=== PATIENT | male | born 1950 | race Caucasian/White ===

== ENCOUNTER 2017-05-07 16:45 | Inpatient (IN) | payer OTHER ==
[~2017-05-07] VITALS: Ht 167.6 cm; Wt 55.7 kg
[~2017-05-07 16:45] MED LIST: ASPIR 8181 M1 PO; BENADRYL25 MG PO; DIGOXIN125 MCG PO; DOK PLUS TABLE1 EACH PO; FOLIC ACID0.8 M1 PO; LISINOPRIL10 MG PO; METOPROLOL TART25 MG PO; OXYCODONE HCL5 MG PO; RANITIDINE HCL150 MG PO; SIMVASTATIN20 MG PO; TYLENOL ARTHRI650 MG PO; XARELTO10 MG PO; XARELTO20 MG PO
[2017-05-07 21:30] LABS: HEMATOCRIT 35.3 % (38.0-50.0); MCH 30.7 PG (29.0-34.0); MCHC 33.7 G/DL (30.0-36.0); MCV 91.2 FL (86-99); MEAN PLAT.VOLUME 9.1 uM^3 (9.0-12.4); PLATELET COUNT 248 K/uL (156-360); RBC DIS.WIDTH-CV 12.7 % (11.8-14.6); RBC DIS.WIDTH-SD 42.3 % (39-53); RED BLOOD COUNT 3.87 M/uL (4.00-5.50); WHITE BLOOD COUNT 16.3 K/uL (4.1-10.2)
[2017-05-07 21:35] LABS: INTER. NORMALIZED RATIO 1.2; PROTHROMBIN TIME 12.8 SEC (10.2-12.9)
[2017-05-07 21:38] LABS: PTT 30.9 SEC (25-37)
[2017-05-07 21:40] LABS: CHLORIDE 96 mEq/L (99-109); SODIUM 129 mEq/L (136-147)
[2017-05-07 21:42] LABS: GLUCOSE 120 mg/dL (70-99)
[2017-05-07 21:43] LABS: ANION GAP 10 MEQ/L (2-14)
[2017-05-07 21:46] LABS: GFR ESTIMATE (CALCULATED) > 59 mL/min/
[2017-05-07 21:47] LABS: UREA NITROGEN (BUN) 9 mg/dL (9-23)
[2017-05-07 23:13] VITALS: BP 114/79
[2017-05-08 00:47] LABS: TROP-I INTERPRETATION NEGATIVE; TROPONIN-I 0.02 ng/mL (0.0-0.30)
[2017-05-08 02:01] LABS: MAGNESIUM 1.4 mg/dL (1.3-2.7)
[2017-05-08 04:05] VITALS: BP 98/68
[2017-05-08 05:12] LABS: ADD MIUA? YES; BILIRUBIN NEGATIVE; BLOOD MODERATE; COLOR YELLOW ((YELLOW)); GLUCOSE (STRIP) NEGATIVE; KETONES 20; LEUKOCYTES NEGATIVE; NITRITE NEGATIVE; PROTEIN (STRIP) NEGATIVE; SPECIFIC GRAVITY 1.015 (1.000-1.030); UROBILINOGEN 0.2 MG/DL (0.2-1.0)
[2017-05-08 05:23] LABS: BACTERIA NONE SEEN /HPF; EPITHELIAL CELLS NONE SEEN /HPF; MUCUS TRACE /LPF; UCUL ADDED? NO; WHITE BLOOD CELLS 0-5 /HPF (0-5)
[2017-05-08 08:15] VITALS: BP 105/65
[2017-05-08 14:19] VITALS: BP 136/86
[2017-05-08 20:51] VITALS: BP 110/74
[2017-05-08 23:32] VITALS: BP 105/64
[2017-05-09] VITALS (10 sets, daily range): BP systolic 97–116; BP diastolic 54–66
[2017-05-09 06:17] LABS: HEMATOCRIT 23.4 % (38.0-50.0); MCV 94.4 FL (86-99)
[2017-05-09 06:36] LABS: ANION GAP 9 MEQ/L (2-14); CHLORIDE 98 MEQ/L (99-109); GFR ESTIMATE (CALCULATED) > 59 mL/min/; POTASSIUM 4.7 MEQ/L (3.7-5.4); SAMPLE HEMOLYSIS CHECK 0; SAMPLE ICTERIC CHECK 0; SAMPLE LIPEMIA CHECK 0; SODIUM 130 MEQ/L (136-147); UREA NITROGEN (BUN) 16 mg/dL (9-23)
[2017-05-09 06:45] LABS: GLUCOSE 193 mg/dL (70-99)
[2017-05-10] VITALS (11 sets, daily range): BP systolic 82–115; BP diastolic 50–66
[2017-05-10 07:12] LABS: HEMATOCRIT 21.1 % (38.0-50.0); MCH 30.6 PG (29.0-34.0); MCHC 33.2 G/DL (30.0-36.0); MCV 92.1 FL (86-99); RBC DIS.WIDTH-CV 14.6 % (11.8-14.6); RBC DIS.WIDTH-SD 49.6 % (39-53); RED BLOOD COUNT 2.29 M/uL (4.00-5.50); WHITE BLOOD COUNT 10.7 K/uL (4.1-10.2)
[2017-05-10 07:19] LABS: EOSINOPHIL (%) 0 % (0-5); IMMATURE GRANULOCYTE (%) 0.5 % (0.0-0.7); IMMATURE GRANULOCYTE COUNT 0.1 K/uL; MEAN PLAT.VOLUME 10.2 uM^3 (9.0-12.4); MONOCYTE (%) 5.7 % (3-12); MONOCYTE COUNT 0.6 K/uL (0-0.8); NEUTROPHIL (%) 84.4 % (45-76); PLAT.SUFFICIENCY ADEQUATE
[2017-05-10 07:22] LABS: PLATELET COUNT 157 K/uL (156-360)
[2017-05-10 07:47] LABS: ALKALINE PHOSPHATASE 34 IU/L (3-129); ANION GAP 5 MEQ/L (2-14); CHLORIDE 101 MEQ/L (99-109); GFR ESTIMATE (CALCULATED) > 59 mL/min/; POTASSIUM 4.5 MEQ/L (3.7-5.4); SAMPLE HEMOLYSIS CHECK 0; SAMPLE ICTERIC CHECK 0; SAMPLE LIPEMIA CHECK 0; SODIUM 132 MEQ/L (136-147); TOTAL BILIRUBIN 0.6 MG/DL (0.0-1.0); UREA NITROGEN (BUN) 16 mg/dL (9-23)
[2017-05-10 07:48] LABS: GLUCOSE 113 mg/dL (70-99)
[2017-05-11 00:19] VITALS: BP 106/61
[2017-05-11 06:46] LABS: MCH 30.6 PG (29.0-34.0); MCHC 33.2 G/DL (30.0-36.0); MCV 92.1 FL (86-99); MEAN PLAT.VOLUME 9.7 uM^3 (9.0-12.4); PLATELET COUNT 156 K/uL (156-360); RBC DIS.WIDTH-CV 15.1 % (11.8-14.6); RBC DIS.WIDTH-SD 50.7 % (39-53); WHITE BLOOD COUNT 8.5 K/uL (4.1-10.2)
[2017-05-11 07:05] LABS: ANION GAP 7 MEQ/L (2-14); CHLORIDE 107 MEQ/L (99-109); GFR ESTIMATE (CALCULATED) > 59 mL/min/; GLUCOSE 97 mg/dL (70-99); SAMPLE HEMOLYSIS CHECK 0; SAMPLE ICTERIC CHECK 0; SAMPLE LIPEMIA CHECK 0; SODIUM 135 MEQ/L (136-147); UREA NITROGEN (BUN) 11 mg/dL (9-23)
[2017-05-11 07:28] LABS: RED BLOOD COUNT 3.04 M/uL (4.00-5.50)
[2017-05-11 08:06] VITALS: BP 110/71
[2017-05-11 12:25] VITALS: BP 112/68
[2017-05-11 15:29] LABS: HEMATOCRIT 35.1 % (38.0-50.0); MCV 92.1 FL (86-99)
[2017-05-11 15:36] VITALS: BP 101/59
[2017-05-11 19:29] VITALS: BP 111/65
[2017-05-11 23:40] VITALS: BP 132/74
[2017-05-12 03:47] VITALS: BP 138/81
[2017-05-12 06:54] LABS: HEMATOCRIT 27.2 % (38.0-50.0); MCH 31.8 PG (29.0-34.0); MCHC 34.9 G/DL (30.0-36.0); MEAN PLAT.VOLUME 9.2 uM^3 (9.0-12.4); PLATELET COUNT 173 K/uL (156-360); RBC DIS.WIDTH-CV 14.9 % (11.8-14.6); RBC DIS.WIDTH-SD 49.1 % (39-53); RED BLOOD COUNT 2.99 M/uL (4.00-5.50); WHITE BLOOD COUNT 6.3 K/uL (4.1-10.2)
[2017-05-12 07:27] VITALS: BP 144/89
[2017-05-12 16:27] VITALS: BP 106/76
[2017-05-12 19:42] VITALS: BP 100/73
[2017-05-12 23:41] VITALS: BP 120/86
[2017-05-13 06:52] LABS: HEMATOCRIT 31.6 % (38.0-50.0); MCH 32.1 PG (29.0-34.0); MCHC 34.8 G/DL (30.0-36.0); MCV 92.1 FL (86-99); PLATELET COUNT 172 K/uL (156-360); RBC DIS.WIDTH-CV 14.6 % (11.8-14.6); RBC DIS.WIDTH-SD 48.8 % (39-53); RED BLOOD COUNT 3.43 M/uL (4.00-5.50); WHITE BLOOD COUNT 8.9 K/uL (4.1-10.2)
[2017-05-13 07:10] VITALS: BP 128/81
[2017-05-13 07:24] LABS: ANION GAP 9 MEQ/L (2-14); CHLORIDE 102 MEQ/L (99-109); GFR ESTIMATE (CALCULATED) > 59 mL/min/; GLUCOSE 91 mg/dL (70-99); SAMPLE HEMOLYSIS CHECK 0; SAMPLE ICTERIC CHECK 0; SAMPLE LIPEMIA CHECK 0; SODIUM 131 MEQ/L (136-147); UREA NITROGEN (BUN) 9 mg/dL (9-23)
[2017-05-13] MEDS ORDERED: DUONEB 2.5-0.5 M3 ML PEP (09:49)
[2017-05-13] MEDS ORDERED: THERAGRAN1 TABLET PO (09:50)
[2017-05-13] MEDS ORDERED: SENNA PLUS TAB1 EACH PO (09:50)
[2017-05-13] MEDS ORDERED: ELIQUIS2.5 MG PO (09:50)
[2017-05-13 15:53] VITALS: BP 115/72
[2017-05-14 00:17] VITALS: BP 126/80
[2017-05-14 08:10] VITALS: BP 111/75
[2017-05-14 10:31] LABS: ANION GAP 8 MEQ/L (2-14); CHLORIDE 104 MEQ/L (99-109); POTASSIUM 3.9 MEQ/L (3.7-5.4); SAMPLE HEMOLYSIS CHECK 0; SAMPLE ICTERIC CHECK 0; SAMPLE LIPEMIA CHECK 0; SODIUM 134 MEQ/L (136-147)
[2017-05-14 10:36] LABS: GFR ESTIMATE (CALCULATED) > 59 mL/min/; GLUCOSE 92 mg/dL (70-99); UREA NITROGEN (BUN) 9 mg/dL (9-23)
[2017-05-14 12:18] VITALS: BP 110/76
== END 2017-05-14 13:10 | DRG 481 ==
LOC: EME 16:45 → EDOF 22:11 → 3EAST 22:11 → ENRESERV 22:15 → 3EAST 23:10
PROVIDERS: Emergency Medicine; Hospitalist; Orthopaedic Surgery; Physician Assistant
PROC: 0HQ1XZZ Repair Face Skin, External Approach (ICD-10-PCS; principal; 2017-05-07)
PROC: 0QS906Z Reposition Left Femoral Shaft with Intramedullary Internal Fixation Device, Open Approach (ICD-10-PCS; principal; 2017-05-07)
PROC: 30233N1 Transfusion of Nonautologous Red Blood Cells into Peripheral Vein, Percutaneous Approach (ICD-10-PCS; 2017-05-09)
DX: S72.452A Displaced supracondylar fracture without intracondylar extension of lower end of left femur, initial encounter for closed fracture (principal); Z96.652 Presence of left artificial knee joint; M97.9XXA Periprosthetic fracture around unspecified internal prosthetic joint, initial encounter; W01.0XXA Fall on same level from slipping, tripping and stumbling without subsequent striking against object, initial encounter; I10 Essential (primary) hypertension; E78.00 Pure hypercholesterolemia, unspecified; I25.10 Atherosclerotic heart disease of native coronary artery without angina pectoris; S01.81XA Laceration without foreign body of other part of head, initial encounter; E87.1 Hypo-osmolality and hyponatremia; K02.9 Dental caries, unspecified; I48.0 Paroxysmal atrial fibrillation; F10.20 Alcohol dependence, uncomplicated; J32.0 Chronic maxillary sinusitis; Z87.891 Personal history of nicotine dependence; I25.2 Old myocardial infarction; D72.829 Elevated white blood cell count, unspecified; D62 Acute posthemorrhagic anemia
CPT/HCPCS: 70450; 70486; 71010; 73552; 73560; 76000; 80048; 80053; 81003; 82306; 83605; 83735; 83880; 84484; 85014; 85018; 85025; 85027; 85610; 85730; 86850; 86900; 86901; 86920; 93005; 93306; 93880; 94760; 94799; 97530 GP; 99202; 99281; 99285; C1713; J0330; J0690; J1100; J1170; J2250; J2270; J2405; J2710; J3010; J3475; J7030; P9016

== ENCOUNTER 2017-05-14 11:07 | Inpatient (IN) | payer OTHER ==
[~2017-05-14] VITALS: Ht 170.2 cm; Wt 61.0 kg
[~2017-05-14 11:07] MED LIST changes: +DUONEB 2.5-0.5 M3 ML PEP; +ELIQUIS2.5 MG PO; +SENNA PLUS TAB1 EACH PO; +THERAGRAN1 TABLET PO
[2017-05-14 13:30] VITALS: BP 119/77
[2017-05-14 23:48] VITALS: BP 113/87
[2017-05-15 05:27] VITALS: BP 115/72
[2017-05-15 11:03] LABS: HEMATOCRIT 29.8 % (38.0-50.0); MCH 31.6 PG (29.0-34.0); MCHC 34.6 G/DL (30.0-36.0); MCV 91.4 FL (86-99); MEAN PLAT.VOLUME 9.2 uM^3 (9.0-12.4); PLATELET COUNT 255 K/uL (156-360); RBC DIS.WIDTH-CV 14.1 % (11.8-14.6); RBC DIS.WIDTH-SD 47.2 % (39-53); RED BLOOD COUNT 3.26 M/uL (4.00-5.50); WHITE BLOOD COUNT 7.7 K/uL (4.1-10.2)
[2017-05-15 11:40] LABS: ALKALINE PHOSPHATASE 48 IU/L (3-129); ANION GAP 9 MEQ/L (2-14); CHLORIDE 100 MEQ/L (99-109); GFR ESTIMATE (CALCULATED) > 59 mL/min/; GLUCOSE 86 mg/dL (70-99); POTASSIUM 3.9 MEQ/L (3.7-5.4); SAMPLE HEMOLYSIS CHECK 0; SAMPLE ICTERIC CHECK 0; SAMPLE LIPEMIA CHECK 0; SODIUM 134 MEQ/L (136-147); UREA NITROGEN (BUN) 10 mg/dL (9-23)
[2017-05-15 11:42] LABS: TOTAL BILIRUBIN 0.8 MG/DL (0.0-1.0)
[2017-05-15 15:09] VITALS: BP 122/74
[2017-05-16 04:55] VITALS: BP 131/77
[2017-05-16 15:00] VITALS: BP 123/78
[2017-05-17 05:16] VITALS: BP 108/74
[2017-05-17 06:20] LABS: ANION GAP 7 MEQ/L (2-14); CHLORIDE 104 MEQ/L (99-109); GFR ESTIMATE (CALCULATED) > 59 mL/min/; GLUCOSE 90 mg/dL (70-99); POTASSIUM 3.4 MEQ/L (3.7-5.4); SAMPLE HEMOLYSIS CHECK 0; SAMPLE ICTERIC CHECK 0; SAMPLE LIPEMIA CHECK 0; SODIUM 136 MEQ/L (136-147); UREA NITROGEN (BUN) 6 mg/dL (9-23); URIC ACID 4.7 mg/dL (3.1-9.2)
[2017-05-17 15:50] VITALS: BP 108/66
[2017-05-18 05:17] VITALS: BP 107/73
[2017-05-18 15:20] VITALS: BP 99/60
[2017-05-19 05:30] VITALS: BP 118/76
[2017-05-19 07:18] LABS: ANION GAP 6 MEQ/L (2-14); CHLORIDE 105 MEQ/L (99-109); GFR ESTIMATE (CALCULATED) > 59 mL/min/; GLUCOSE 89 mg/dL (70-99); POTASSIUM 3.7 MEQ/L (3.7-5.4); SAMPLE HEMOLYSIS CHECK 0; SAMPLE ICTERIC CHECK 0; SAMPLE LIPEMIA CHECK 0; SODIUM 134 MEQ/L (136-147); UREA NITROGEN (BUN) 5 mg/dL (9-23)
[2017-05-19 15:11] VITALS: BP 126/80
[2017-05-20 05:16] VITALS: BP 113/70
[2017-05-20 15:27] VITALS: BP 105/68
[2017-05-21 05:33] VITALS: BP 132/79
[2017-05-22 05:42] VITALS: BP 118/76
[2017-05-22 15:18] VITALS: BP 113/63
[2017-05-23 04:36] VITALS: BP 120/79
[2017-05-23 15:28] VITALS: BP 111/70
[2017-05-24 05:43] VITALS: BP 104/68
[2017-05-24 08:33] VITALS: BP 109/57
[2017-05-24 15:29] VITALS: BP 120/72
[2017-05-25 04:56] VITALS: BP 107/74
[2017-05-25 07:23] LABS: HEMATOCRIT 28.3 % (38.0-50.0); MCH 29.1 PG (29.0-34.0); MCHC 32.5 G/DL (30.0-36.0); MCV 89.6 FL (86-99); RBC DIS.WIDTH-CV 13.7 % (11.8-14.6); RBC DIS.WIDTH-SD 45.1 % (39-53); RED BLOOD COUNT 3.16 M/uL (4.00-5.50); WHITE BLOOD COUNT 7.2 K/uL (4.1-10.2)
[2017-05-25 07:29] LABS: ANION GAP 8 MEQ/L (2-14); CHLORIDE 103 MEQ/L (99-109); GFR ESTIMATE (CALCULATED) > 59 mL/min/; GLUCOSE 85 mg/dL (70-99); POTASSIUM 4.3 MEQ/L (3.7-5.4); SAMPLE HEMOLYSIS CHECK 0; SAMPLE ICTERIC CHECK 0; SAMPLE LIPEMIA CHECK 0; SODIUM 137 MEQ/L (136-147); UREA NITROGEN (BUN) 4 mg/dL (9-23)
[2017-05-25 07:30] LABS: PLATELET COUNT 415 K/uL (156-360)
[2017-05-25 08:19] VITALS: BP 99/60
[2017-05-25 11:22] VITALS: BP 107/69
[2017-05-25 15:07] VITALS: BP 115/70
[2017-05-25 19:30] VITALS: BP 107/67
[2017-05-26 05:22] VITALS: BP 103/63
[2017-05-26 15:07] VITALS: BP 105/74
[2017-05-27 05:34] VITALS: BP 126/78
[2017-05-27 15:00] VITALS: BP 117/72
[2017-05-28 05:27] VITALS: BP 119/52
[2017-05-28 09:19] LABS: MCH 29.6 PG (29.0-34.0); MCHC 32.4 G/DL (30.0-36.0); MCV 91.2 FL (86-99); MEAN PLAT.VOLUME 9.1 uM^3 (9.0-12.4); PLATELET COUNT 462 K/uL (156-360); RBC DIS.WIDTH-CV 13.9 % (11.8-14.6); RBC DIS.WIDTH-SD 46.5 % (39-53); RED BLOOD COUNT 3.18 M/uL (4.00-5.50); WHITE BLOOD COUNT 7.1 K/uL (4.1-10.2)
[2017-05-28 09:46] LABS: ALKALINE PHOSPHATASE 100 IU/L (3-129); ANION GAP 6 MEQ/L (2-14); CHLORIDE 102 MEQ/L (99-109); GFR ESTIMATE (CALCULATED) > 59 mL/min/; GLUCOSE 73 mg/dL (70-99); POTASSIUM 3.7 MEQ/L (3.7-5.4); SAMPLE HEMOLYSIS CHECK 0; SAMPLE ICTERIC CHECK 0; SAMPLE LIPEMIA CHECK 0; SODIUM 135 MEQ/L (136-147); TOTAL BILIRUBIN 0.5 MG/DL (0.0-1.0); UREA NITROGEN (BUN) 5 mg/dL (9-23)
[2017-05-28 15:31] VITALS: BP 124/73
[2017-05-29 05:47] VITALS: BP 127/74
[2017-05-29] MEDS ORDERED: METOPROLOL TART25 MG PO (12:20)
[2017-05-29] MEDS ORDERED: DIGOXIN125 MCG PO (12:20)
[2017-05-29] MEDS ORDERED: Thiamine,Vitamin B1 PO (12:20)
[2017-05-29] MEDS ORDERED: TAMSULOSIN HCL0.4 MG PO (12:20)
[2017-05-29] MEDS ORDERED: FOLIC ACID1 MG PO (12:20)
[2017-05-29] MEDS ORDERED: SIMVASTATIN20 MG PO (12:20)
[2017-05-29] MEDS ORDERED: VITAMIN D2000 UNI1 PO (12:20)
[2017-05-29] MEDS ORDERED: DOCUSATE SODIU100 MG PO (12:20)
[2017-05-29] MEDS ORDERED: SENNA PLUS TAB1 EACH PO (12:20)
== END 2017-05-29 13:21 | disposition home health service (06) | DRG 560 ==
LOC: 3WEST 11:07 → ENPENDDIS 05-28 → 3WEST 05-29 13:21
PROVIDERS: Physical Medicine & Rehabilitation Pain Medicine
PROC: F07M0ZZ Range of Motion and Joint Mobility Treatment of Musculoskeletal System - Whole Body (ICD-10-PCS; principal; 2017-05-14)
DX: S72.452D Displaced supracondylar fracture without intracondylar extension of lower end of left femur, subsequent encounter for closed fracture with routine healing (principal); M97.12XD Periprosthetic fracture around internal prosthetic left knee joint, subsequent encounter; D62 Acute posthemorrhagic anemia; E87.1 Hypo-osmolality and hyponatremia; L89.622 Pressure ulcer of left heel, stage 2; R33.8 Other retention of urine; W18.39XD Other fall on same level, subsequent encounter; I10 Essential (primary) hypertension; E78.5 Hyperlipidemia, unspecified; E83.51 Hypocalcemia; D72.829 Elevated white blood cell count, unspecified; E87.6 Hypokalemia; F10.20 Alcohol dependence, uncomplicated; G89.18 Other acute postprocedural pain; G89.11 Acute pain due to trauma; I25.2 Old myocardial infarction; I48.0 Paroxysmal atrial fibrillation; J32.4 Chronic pansinusitis; K02.9 Dental caries, unspecified; M19.90 Unspecified osteoarthritis, unspecified site; Z96.653 Presence of artificial knee joint, bilateral; Z80.42 Family history of malignant neoplasm of prostate; Z87.891 Personal history of nicotine dependence
CPT/HCPCS: 73552; 80048; 80053; 84550; 85027; 97110 GO; 97530 GP; 99202